=== PATIENT | female | born 1960 | race Two or more races ===

== ENCOUNTER 2018-09-14 21:50 | Emergency (ER) | payer SELFPAY ==
[~2018-09-14] VITALS: Ht 160 cm; Wt 81.6 kg
[2018-09-15 01:10] LABS: BASO # 0.1 x10^3/uL (0.0-0.2); BASO % 1 % (0-3); EOS # 0.1 x10^3/uL (0.0-0.7); EOS % 1 % (0-3); HEMATOCRIT 39.2 % (36.0-47.0); LYMPH # 3.3 x10^3/uL (1.0-4.8); LYMPH % 32 % (24-48); MEAN CORPUSCULAR HEMOGLOBIN 30 pg (25-35); MEAN CORPUSCULAR HGB CONC 33 g/dL (31-37); MEAN CORPUSCULAR VOLUME 90 fL (79-100); MONO # 0.6 x10^3/uL (0.0-1.1); MONO % 6 % (0-9); NEUT # 6.1 x10^3uL (1.8-7.7); NEUT % 60 % (31-73); PLATELET COUNT 255 x10^3/uL (140-400); RED BLOOD COUNT 4.38 x10^6/uL (3.50-5.40); RED CELL DISTRIBUTION WIDTH 13.1 % (11.5-14.5); WHITE BLOOD COUNT 10.2 x10^3/uL (4.0-11.0)
[2018-09-15 01:14] LABS: BILIRUBIN,URINE NEGATIVE (NEG); CLARITY,URINE CLOUDY; COLOR,URINE YELLOW; NITRITE,URINE NEGATIVE (NEG); PROTEIN,URINE NEGATIVE (NEG-TRACE); UROBILINOGEN,URINE 0.2 mg/dL (0.2 mg/dL)
[2018-09-15] MEDS ORDERED: MORPHINE SULFATE 4 MG/ML VIAL. IV ONE (01:15)
[2018-09-15] MEDS ORDERED: ONDANSETRON PF 4 MG/2 ML VIAL. IV ONE (01:15)
--- NOTE | 2018-09-15 01:18 | PHYS DOC ---
Past Medical History Past Medical History: Angina, Diabetes-Type II (CALVIN GODINEZ APRN) Additional Past Surgical Histo: CYST REMOVAL? (CALVIN GODINEZ APRN) Smoking: Quit Less Than 1 Year Alcohol Use: Occasionally Drug Use: None (CALVIN GODINEZ APRN) Adult General Chief Complaint Chief Complaint: FLANK PAIN HPI HPI Patient is 58-year-old female that presents with abdominal pain. Abdominal pain started 2 days ago. Abdominal pain is located in the right upper quadrant and right lower quadrant. Patient had the pain before 2 weeks ago and then it disapp eared. Patient also states that 2 weeks ago she had chest pain that started and went down her left arm. States that her pain is 9 out of 10 and described as sharp in quality. (CALVIN GODINEZ APRN) Review of Systems Review of Systems Constitutional: Denies fever or chills [] Eyes: Denies change in visual acuity, redness, or eye pain [] HENT: Denies nasal congestion or sore throat [] Respiratory: Denies cough or shortness of breath [] Cardiovascular: Reports Chest Pain that radiates down her L arm. Denies syncope or palpitations. GI: Reports abdominal pain in the RLQ and RUQ. Denies nausea, vomiting, bloody stools or diarrhea [] : Denies dysuria. Reports intermittently wiping and having blood. Her period stopped 6 years ago. Musculoskeletal: Denies back pain or joint pain [] Integument: Denies rash or skin lesions [] Neurologic: Denies headache, focal weakness or sensory changes [] Endocrine: Denies polyuria or polydipsia [] Complete systems were reviewed and found to be within normal limits, except as documented in this note. (CALVIN GODINEZ APRN) Current Medications Current Medications Current Medications Medications (Trade) Dose Ordered Sig/Braden Start Time Stop Time Status Last Admin Dose Admin Info (CONTRAST GIVEN -- Rx MONITORING) 1 each PRN DAILY PRN 09/15/18 02:00 09/17/18 01:59 Iohexol (Omnipaque 300 Mg/ml) 75 ml 1X ONCE 09/15/18 02:00 09/15/18 02:01 DC 09/15/18 03:15 75 ML Morphine Sulfate (Morphine Sulfate) 4 mg 1X ONCE 09/15/18 01:15 09/15/18 01:16 DC 09/15/18 01:54 4 MG Ondansetron HCl (Zofran) 4 mg 1X ONCE 09/15/18 01:15 09/15/18 01:16 DC 09/15/18 01:53 4 MG (PEREZ CHAUDHARY MD) Allergies Allergies Allergies Coded Allergies Type Severity Reaction Last Updated Verified Penicillins Allergy Intermediate 09/14/18 No (PEREZ CHAUDHARY MD) Physical Exam Physical Exam Constitutional: Well developed, well nourished, no acute distress, non-toxic appearance. [] HENT: Normocephalic, atraumatic, bilateral external ears normal, Left ear has cerumen impaction, oropharynx moist, no oral exudates, nose normal. [] Eyes: PERRLA, EOMI, conjunctiva normal, no discharge. [] Neck: Normal range of motion, no tenderness, supple, no stridor. [] Cardiovascular:Heart rate regular rhythm, no murmur [] Lungs & Thorax: Bilateral breath sounds clear to auscultation [] Abdomen: Bowel sounds normal, soft, tenderness to RUQ and RLQ, no rebound tenderness, no masses, no pulsatile masses. [] Skin: Warm, dry, no erythema, no rash. [] Back: No tenderness, no CVA tenderness. [] Extremities: No tenderness, no cyanosis, no clubbing, ROM intact, no edema. [] Neurologic: Alert and oriented X 3, normal motor function, normal sensory fun ction, no focal deficits noted. [] Psychologic: Affect normal, judgement normal, mood normal. [] (CALVIN GODINEZ APRN) Current Patient Data Vital Signs Vital Signs Date Time Temp Pulse Resp B/P (MAP) Pulse Ox O2 Delivery O2 Flow Rate FiO2 09/15/18 03:10 68 143/75 (97) 97 Room Air 09/15/18 01:54 18 09/14/18 22:04 97.9 97.9 (PEREZ CHAUDHARY MD) Lab Values Laboratory Tests Test 09/15/18 00:20 09/15/18 00:30 09/15/18 01:45 Urine Collection Type Void Urine Color Yellow Urine Clarity Cloudy Urine pH 5.0 Urine Specific [place] 1.025 Urine Protein Negative mg/dL (NEG-TRACE) Urine Glucose (UA) Negative mg/dL (NEG) Urine Ketones (Stick) Trace mg/dL (NEG) Urine Blood Small (NEG) Urine Nitrite Negative (NEG) Urine Bilirubin Negative (NEG) Urine Urobilinogen Dipstick 0.2 mg/dL (0.2 mg/dL) Urine Leukocyte Esterase Small (NEG) Urine RBC 0 /HPF (0-2) Urine WBC 5-10 /HPF (0-4) Urine Squamous Epithelial Cells Mod /LPF Urine Bacteria Many /HPF (0-FEW) Urine Hyaline Casts Few /HPF Urine Mucus Slight /LPF White Blood Count 10.2 x10^3/uL (4.0-11.0) Red Blood Count 4.38 x10^6/uL (3.50-5.40) Hemoglobin 13.0 g/dL (12.0-15.5) Hematocrit 39.2 % (36.0-47.0) Mean Corpuscular Volume 90 fL (79-100) Mean Corpuscular Hemoglobin 30 pg (25-35) Mean Corpuscular Hemoglobin Concent 33 g/dL (31-37) Red Cell Distribution Width 13.1 % (11.5-14.5) Platelet Count 255 x10^3/uL (140-400) Neutrophils (%) (Auto) 60 % (31-73) Lymphocytes (%) (Auto) 32 % (24-48) Monocytes (%) (Auto) 6 % (0-9) Eosinophils (%) (Auto) 1 % (0-3) Basophils (%) (Auto) 1 % (0-3) Neutrophils # (Auto) 6.1 x10^3uL (1.8-7.7) Lymphocytes # (Auto) 3.3 x10^3/uL (1.0-4.8) Monocytes # (Auto) 0.6 x10^3/uL (0.0-1.1) Eosinophils # (Auto) 0.1 x10^3/uL (0.0-0.7) Basophils # (Auto) 0.1 x10^3/uL (0.0-0.2) Sodium Level 137 mmol/L (136-145) Potassium Level 4.4 mmol/L (3.5-5.1) Chloride Level 103 mmol/L (98-107) Carbon Dioxide Level 25 mmol/L (21-32) Anion Gap 9 (6-14) Blood Urea Nitrogen 16 mg/dL (7-20) Creatinine 0.8 mg/dL (0.6-1.0) Estimated GFR (Cockcroft-Gault) 74.2 BUN/Creatinine Ratio 20 (6-20) Glucose Level 173 mg/dL (70-99) H Calcium Level 9.1 mg/dL (8.5-10.1) Total Bilirubin 0.2 mg/dL (0.2-1.0) Aspartate Amino Transferase (AST) 18 U/L (15-37) Alanine Aminotransferase (ALT) 30 U/L (14-59) Alkaline Phosphatase 66 U/L (46-116) Troponin I Quantitative < 0.017 ng/mL (0.000-0.055) Total Protein 7.2 g/dL (6.4-8.2) Albumin 3.7 g/dL (3.4-5.0) Albumin/Globulin Ratio 1.1 (1.0-1.7) Lipase 113 U/L (73-393) Laboratory Tests 09/15/18 00:30 Laboratory Tests 09/15/18 01:45 (PEREZ CHAUDHARY MD) Lab Values Laboratory Tests Test 09/15/18 00:30 White Blood Count 10.2 x10^3/uL (4.0-11.0) Red Blood Count 4.38 x10^6/uL (3.50-5.40) Hemoglobin 13.0 g/dL (12.0-15.5) Hematocrit 39.2 % (36.0-47.0) Mean Corpuscular Volume 90 fL (79-100) Mean Corpuscular Hemoglobin 30 pg (25-35) Mean Corpuscular Hemoglobin Concent 33 g/dL (31-37) Red Cell Distribution Width 13.1 % (11.5-14.5) Platelet Count 255 x10^3/uL (140-400) Neutrophils (%) (Auto) 60 % (31-73) Lymphocytes (%) (Auto) 32 % (24-48) Monocytes (%) (Auto) 6 % (0-9) Eosinophils (%) (Auto) 1 % (0-3) Basophils (%) (Auto) 1 % (0-3) Neutrophils # (Auto) 6.1 x10^3uL (1.8-7.7) Lymphocytes # (Auto) 3.3 x10^3/uL (1.0-4.8) Monocytes # (Auto) 0.6 x10^3/uL (0.0-1.1) Eosinophils # (Auto) 0.1 x10^3/uL (0.0-0.7) Basophils # (Auto) 0.1 x10^3/uL (0.0-0.2) Laboratory Tests 09/15/18 00:30 (CALVIN GODINEZ APRN) EKG EKG [] (CALVIN GODINEZ APRN) Radiology/Procedures Radiology/Procedures [] (CALVIN GODINEZ APRN) Course & Med Decision Making Course & Med Decision Making Pertinent Labs and Imaging studies reviewed. (See chart for details) Talked with patient and daughter. Discussed we will check labs, urine, get CT of the abdomen, EKG and supportive care via medication. Patient is agreeable to pl an of care. Dr. Chaudhary assumed care at 115 AM. (CALVIN GODINEZ APRN) Course & Med Decision Making S/O FROM GODINEZ EKG normal sinus rhythm rate of 68 no acute ischemic changes noted interpreted by me time of encounter FINDINGS: Mild bibasilar lung atelectasis. No evidence of free air identified in the abdomen. Mild decreased attenuation noted in the liver likely hepatic steatosis. The visualized spleen, adrenals grossly appears unremarkable. The gallbladder is mildly distended. The stomach is mildly distended. The visualized pancreas grossly appears unremarkable. The small bowel is nondilated. Appendix is normal. Feces and gas noted in the colon Urinary bladder is mildly distended. The bilateral kidneys enhance symmetrically. 5 mm hypodensity identified in the right kidney could be a small angiomyolipoma. No evidence of lytic bony destructive lesion. IMPRESSION: 1. No acute intra-abdominal findings. 2. Mild hepatic steatosis. Electronically signed by: Jae Mooney MD (09/15/2018 3:40 AM) [facility] DICTATED and SIGNED BY: JAE MOONEY MD DATE: 09/15/18 034 UA showed possible mild UTI BUT contaminated sample Lab work is essentially unremarkable pain went away after morphine I reevaluated her she was mainly complaining of low back pain with a reproducible component on examination. Chest pain she described as atypical and occurred over 2 weeks ago troponin and EKG were negative I think she is stable for outpatient management this time for Bactrim and hydrocodone with Colace was given advised to follow-up with primary care doctor next week for further evaluation. Also NEEDS endometrial biopsy discharge instructions noted this as well, due to postmenopausal bleeding by review of systems as noted above (PEREZ CHAUDHARY MD) Dragon Disclaimer Dragon Disclaimer This electronic medical record was generated, in whole or in part, using a voice recognition dictation system. (CALVIN GODINEZ APRN) Departure Departure Impression: Primary Impression: Back pain Disposition: HOME, SELF-CARE Condition: STABLE Referrals: KEIRA GEORGE MD Additional Instructions: Please follow up with [facility] in regard to the vaginal bleeding for further workup. Scripts Sulfamethoxazole/Trimethoprim (BACTRIM DS TABLET) 1 Each Tablet 1 TAB PO BID, #14 TAB Prov: PEREZ CHAUDHARY MD 09/15/18 Docusate Sodium (COLACE) 100 Mg Capsule 1 CAP PO BID, #30 CAP Prov: PEREZ CHAUDHARY MD 09/15/18 Hydrocodone/Apap 5-325 (NORCO 5-325 TABLET) 1 Each Tablet 1-2 EACH PO PRN Q6HRS PRN for PAIN, #15 as needed for pain Prov: PEREZ CHAUDHARY MD 09/15/18 CALVIN GODINEZ APRN September 15, 2018 01:18 PEREZ CHAUDHARY MD September 15, 2018 04:00
[2018-09-15 01:42] LABS: BACTERIA,URINE MANY /HPF (0-FEW); HYALINE CASTS, URINE FEW /HPF; RBC,URINE 0 /HPF (0-2); SQUAMOUS EPITHELIAL CELL,UR MOD /LPF
[2018-09-15] MEDS ORDERED: CONTRAST GIVEN. MC PRN (02:00)
[2018-09-15] MEDS ORDERED: IOHEXOL 300 MG/ML 100ML VIAL. IV ONE (02:00)
[2018-09-15 02:27] LABS: CALCIUM 9.1 mg/dL (8.5-10.1); CREATININE 0.8 mg/dL (0.6-1.0); GFR 74.2; POTASSIUM 4.4 mmol/L (3.5-5.1)
[2018-09-15 02:32] LABS: ALBUMIN 3.7 g/dL (3.4-5.0); ALBUMIN/GLOBULIN RATIO 1.1 (1.0-1.7); TOTAL BILIRUBIN 0.2 mg/dL (0.2-1.0); TOTAL PROTEIN 7.2 g/dL (6.4-8.2)
[2018-09-15] MEDS ORDERED: DOCU-109 PO (03:38)
[2018-09-15] MEDS ORDERED: HYDR-3164 PO (03:38)
[2018-09-15] MEDS ORDERED: SULF1TAB24 PO (03:38)
[2018-09-15 03:40] VITALS: BP 150/78
--- NOTE | 2018-09-15 03:43 | RAD ---
Examination: CT of the abdomen pelvis with IV contrast HISTORY: History of abdominal pain COMPARISON: None TECHNIQUE: Axial CT images of the abdomen pelvis were performed with IV contrast. Coronal and sagittal reformatted performed Exposure: One or more of the following individualized dose reduction techniques were utilized for this examination: 1. Automated exposure control 2. Adjustment of the mA and/or kV according to patient size 3. Use of iterative reconstruction technique FINDINGS: Mild bibasilar lung atelectasis. No evidence of free air identified in the abdomen. Mild decreased attenuation noted in the liver likely hepatic steatosis. The visualized spleen, adrenals grossly appears unremarkable. The gallbladder is mildly distended. The stomach is mildly distended. The visualized pancreas grossly appears unremarkable. The small bowel is nondilated. Appendix is normal. Feces and gas noted in the colon Urinary bladder is mildly distended. The bilateral kidneys enhance symmetrically. 5 mm hypodensity identified in the right kidney could be a small angiomyolipoma. No evidence of lytic bony destructive lesion. IMPRESSION: 1. No acute intra-abdominal findings. 2. Mild hepatic steatosis. Electronically signed by: Jae Mooney MD (09/15/2018 3:40 AM) [facility]
--- NOTE | 2018-09-15 07:39 | RAD ---
EXAM: Chest, single view. HISTORY: Chest pain. COMPARISON: None. FINDINGS: A frontal view of the chest is obtained. There is no infiltrate, pleural effusion or pneumothorax. The heart is normal in size. IMPRESSION: No acute pulmonary finding. Electronically signed by: Sherley Vasquez MD (09/15/2018 7:36 AM) [facility]
--- NOTE | 2018-09-15 09:59 | EKG ---
[facility] [address] [place] [address] Test Date: 2018-09-15 Test Time: 01:33:48 Pat Name: CEASAR ROLLINS Department: Room: Gender: F [employer]: : [id number] Requested By: CALVIN GODINEZ Order Number: [id number] Reading MD: Mario Leung Measurements Intervals M[place]ill Rate: 68 P: 56 ND: 144 QRS: -41 QRSD: 88 T: 20 QT: 414 QTc: 445 Interpretive Statements SINUS RHYTHM ABNORMAL LEFT AXIS DEVIATION Electronically Signed On 09-18-2018 15:55:59 CDT by Mario Leung
== END 2018-09-15 04:39 | disposition home or self-care (01) ==
LOC: ER 21:50
DX: M54.5 Low back pain (principal); R10.31 Right lower quadrant pain; R10.11 Right upper quadrant pain; H61.22 Impacted cerumen, left ear; K76.0 Fatty (change of) liver, not elsewhere classified; J98.11 Atelectasis; R07.89 Other chest pain; E11.9 Type 2 diabetes mellitus without complications; Z87.891 Personal history of nicotine dependence; Z88.0 Allergy status to penicillin
CPT/HCPCS: 36415; 71046; 74177; 80053; 81001; 83690; 84484; 85025; 93005; 96374; 96375; 99285; J2270; J2405; Q9967